=== PATIENT | male | born 1960 | race Caucasian/White ===

== ENCOUNTER 2017-05-29 11:01 | Emergency (ER) | payer BC ==
[~2017-05-29] VITALS: Ht 190.5 cm; Wt 118.0 kg
[~2017-05-29 11:01] MED LIST: CARV-39 PO; CARV12.52 PO; CLIN300C8 PO; LISI-167 PO; TERA5CAP3 PO; TRAN4TAB PO; VERA240C2 PO
[2017-05-29 12:33] LABS: MEAN CORPUSCULAR HEMOGLOBIN 35.8 pg (27.5-34.5); MEAN CORPUSCULAR HGB CONC 34.6 g/dL (33.2-36.2); MEAN CORPUSCULAR VOLUME 103.3 fL (81-97); MEAN PLATELET VOLUME 8.8 fL (7.4-10.4); PLATELET COUNT 202 x10^3/uL (130-400); RED BLOOD COUNT 4.32 x10^6/uL (4.38-5.82); RED CELL DISTRIBUTION WIDTH 12.5 % (9.4-14.8)
[2017-05-29 12:42] LABS: ANION GAP 5 mmol/L (5-15); C-REACTIVE PROTEIN, QUANT 0.67 mg/dL (0.02-0.49); CALCIUM 9.1 mg/dL (8.5-10.1); CHLORIDE 108 mmol/L (98-107); CREATININE 0.88 mg/dL (0.7-1.3)
[2017-05-29 12:54] LABS: MD YES
[2017-05-29 12:57] LABS: BAND#(MANUAL) 0.72 x10^3/uL; BANDS%(MANUAL) 5 % (0-7); LYMPH#(MANUAL) 1.58 x10^3/uL (1-3.4); LYMPHS% (MANUAL) 11 % (22-44); MONOS#(MANUAL) 0.29 x10^3/uL (0.3-2.7); MONOS% (MANUAL) 2 % (2-9); SEG#(MANUAL) 11.81 x10^3/uL (1.8-6.8); SEGS% (MANUAL) 82 % (42-75)
[2017-05-29 12:58] LABS: <PLATELET ESTIMATE> ADEQUATE; <PLT MORPHOLOGY> NORMAL PLT MORPH
[2017-05-29 13:15] VITALS: BP 132/64
== END 2017-05-29 13:17 | disposition home or self-care (01) ==
LOC: ED 13:10
DX: L03.115 Cellulitis of right lower limb (principal); M79.671 Pain in right foot
CPT/HCPCS: 36415; 80048; 85025; 86140; 99285

== ENCOUNTER 2019-10-20 08:48 | Inpatient (IN) | payer BC ==
[~2019-10-20] VITALS: Ht 190.5 cm; Wt 154.1 kg
[~2019-10-20 08:48] MED LIST changes: -TRAN4TAB PO; +TRAN4TAB23 PO
--- NOTE | 2019-10-20 09:33 | NUR ---
pt biba to ed. hx copd non med complianb bc ran out of insurance 2 years ago. c/o sob, incr wob x1 wk, cannot sleep or lay down. 2+ edema bilat lowers pt sts is new for him. sts abdomen feels full. denies cp. a&ox4 gcs 15 anxious on arrival ?withdrawing, drinks 12 +beers per day but last drink [address] onmonitor 110s. bp high as noted. lungs v dim bilat pt morbidly obese. also c/o nonprod cough, nausea, no v/d/cp. piv est labs drawn ekg done awaiting md. call [facility]. as
[2019-10-20 09:36] LABS: MEAN CORPUSCULAR HEMOGLOBIN 34.3 pg (27.5-34.5); MEAN CORPUSCULAR VOLUME 103.9 fL (81-97); NEUTROPHILS % (AUTO) 87 % (42-75); PLATELET COUNT 191 x10^3/uL (130-400); RED BLOOD COUNT 4.25 x10^6/uL (4.38-5.82); RED CELL DISTRIBUTION WIDTH 13.6 % (9.4-14.8)
[2019-10-20 09:37] LABS: BASOPHILS # (AUTO) 0.04 x10^3/uL (0-0.1); BASOPHILS % (AUTO) 0 % (0-1); EOSINOPHILS # (AUTO) 0.06 x10^3/uL (0-0.4); EOSINOPHILS % (AUTO) 1 % (1-7); LYMPHOCYTES # (AUTO) 0.93 x10^3/uL (1-3.4); LYMPHOCYTES % (AUTO) 8 % (22-44); MD NO; MONOCYTES # (AUTO) 0.49 x10^3/uL (0.2-0.8); MONOCYTES % (AUTO) 4 % (2-9); NEUTROPHILS # (AUTO) 9.96 x10^3/uL (1.8-6.8)
[2019-10-20] MEDS ORDERED: CEFTRIAXONE PMX 1GM/50ML 50 ML ONE (09:45)
[2019-10-20 09:53] LABS: ALANINE AMINOTRANSFERASE 44 U/L (12-78); ALBUMIN 3.5 g/dL (3.4-5.0); ANION GAP 8 mmol/L (5-15); CALCIUM 8.4 mg/dL (8.5-10.1); CHLORIDE 104 mmol/L (98-107); CREATININE 0.96 mg/dL (0.7-1.3)
[2019-10-20 09:59] LABS: ALKALINE PHOSPHATASE 101 U/L (45-117); TOTAL PROTEIN 7.1 g/dL (6.4-8.2); TROPONIN I 0.035 ng/mL (0.000-0.045)
[2019-10-20] MEDS ORDERED: CEFTRIAXONE PMX 1GM/50ML 50 ML IV ONE (10:00)
--- NOTE | 2019-10-20 10:04 | NUR ---
abx infusing bp better pt more calm nad. as
--- NOTE | 2019-10-20 10:14 | NUR ---
hold off on covid swab for now per flakito. o2 off to check pt baseilne. as
--- NOTE | 2019-10-20 10:52 | NUR ---
pt walked around room 3 times ,became v sob, incr wob, RA sat 90. tbadm per flakito fraga in room to update pt, pt agrees. nad. as
[2019-10-20 10:59] LABS: D-DIMER (DIC) 1.1 ug/mlFEU (0.00-0.52); PROTIME 10.8 Seconds (9.6-11.5)
[2019-10-20] MEDS ORDERED: SODIUM CHLORIDE 0.9% 1,000ML IVBOLUS ONE (11:00)
--- NOTE | 2019-10-20 11:32 | NUR ---
ua walked to lab. awaiting admit bed. no needs at this time. on RA. as
[2019-10-20 11:50] LABS: MICROSCOPIC INDICATED
--- NOTE | 2019-10-20 12:05 | NUR ---
admitting hosp at bedside for eval. as
[2019-10-20] MEDS: AMPICILLIN/SULBACTAM 3 GM in SODIUM CHLORIDE 0.9% 100 ML IV SCH ×2 (12:30→21:20)
[2019-10-20] MEDS ORDERED: METOCLOPRAMIDE 5 MG/ML, 2ML IVPush PRN (13:00)
[2019-10-20] MEDS ORDERED: LORazepam 2 MG/ML, 1ML IV PRN ×4 (13:00)
[2019-10-20] MEDS: SENNA/DOCUSATE TABLET PO SCH (13:00)
[2019-10-20] MEDS ORDERED: LORazepam 1MG TABLET PO PRN ×4 (13:00)
[2019-10-20] MEDS: INSULIN LISPRO 100 UNITS/ML, PEN SQ-INSULIN SCH ×3 (13:00→21:16)
[2019-10-20] MEDS ORDERED: ACETAMINOPHEN 325 MG TABLET PO PRN (13:00)
[2019-10-20] MEDS ORDERED: LORazepam 0.5MG TABLET PO PRN (13:00)
[2019-10-20] MEDS ORDERED: BACLOFEN 10 MG TABLET PO PRN (13:00)
[2019-10-20] MEDS ORDERED: POLYETHYLENE GLYCOL 17 GM PACKET PO PRN (13:00)
--- NOTE | 2019-10-20 13:11 | NUR ---
given diet tray. declined food. commode placed in room. vss. awaiting bed. as
--- NOTE | 2019-10-20 13:24 | NUR ---
called pharm for lovenox order. req floor meds from pharm. rinaldi per may. pt oob to bathroom. as
--- NOTE | 2019-10-20 13:30 | NUR ---
report to jeffrey arce. as
[2019-10-20 14:39] VITALS: BP 137/100
[2019-10-20] MEDS: ENOXAPARIN 40 MG/0.4 ML SQ SCH (14:41)
[2019-10-20] MEDS: THIAMINE 100MG TABLET PO SCH (14:42)
[2019-10-20] MEDS: ENOXAPARIN 100 MG/ML SQ SCH (14:42)
[2019-10-20] MEDS: ZINC SULFATE 220 MG CAPSULE PO SCH (14:42)
[2019-10-20] MEDS: FOLIC ACID 1 MG TABLET PO SCH (14:42)
[2019-10-20] MEDS: MULTIVITAMINS/MINERALS TABLET PO SCH (14:42)
[2019-10-20] MEDS: CHOLECALCIFEROL 5,000u TAB PO SCH (14:42)
[2019-10-20] MEDS: NICOTINE 21 MG/24 HR PATCH.TD24 TD SCH (14:43)
[2019-10-20] MEDS: VERAPAMIL ER 240MG TABLET.ER PO SCH (15:37)
[2019-10-20] MEDS: ASCORBATE SODIUM 3,000 MG in SODIUM CHLORIDE 0.9% 250 ML IVPB SCH ×2 (17:01→22:48)
[2019-10-20] MEDS: FUROSEMIDE 20 MG/2 ML IV SCH (18:06)
[2019-10-20] MEDS: DEXAMETHASONE 4 MG TABLET PO SCH (18:06)
[2019-10-20] MEDS: POTASSIUM CHLORIDE 20 MEQ TAB.ER.PRT PO SCH (18:06)
[2019-10-20 18:57] VITALS: BP 124/85
[2019-10-20 22:17] VITALS: BP 139/92
[2019-10-20] MEDS: DOXYCYCLINE 100MG CAP PO SCH (22:45)
[2019-10-20] MEDS: CARVEDILOL 25 MG TABLET PO SCH (22:45)
[2019-10-20] MEDS: ALBUTEROL HFA 90 MCG/SPRAY INH PRN (22:45)
[2019-10-20] MEDS: TERAZOSIN 5MG CAPSULE PO SCH (22:47)
[2019-10-20] MEDS: LISINOPRIL 40 MG TABLET PO SCH (22:47)
[2019-10-20] MEDS: MELATONIN 5 MG TABLET PO SCH (22:50)
[2019-10-21 00:11] VITALS: BP 116/80
[2019-10-21] MEDS: ENOXAPARIN 100 MG/ML SQ SCH ×2 (02:47→13:13)
[2019-10-21] MEDS: LORazepam 2 MG/ML, 1ML IV PRN ×2 (02:48→12:40)
[2019-10-21] MEDS: ENOXAPARIN 40 MG/0.4 ML SQ SCH ×2 (02:48→13:13)
[2019-10-21] MEDS: AMPICILLIN/SULBACTAM 3 GM in SODIUM CHLORIDE 0.9% 100 ML IV SCH ×4 (02:53→22:42)
[2019-10-21 03:20] VITALS: BP 109/79
[2019-10-21] MEDS: ASCORBATE SODIUM 3,000 MG in SODIUM CHLORIDE 0.9% 250 ML IVPB SCH ×3 (05:03→18:13)
[2019-10-21 05:28] LABS: BASOPHILS % (AUTO) 0 % (0-1); EOSINOPHILS % (AUTO) 0 % (1-7); LYMPHOCYTES # (AUTO) 0.59 x10^3/uL (1-3.4); LYMPHOCYTES % (AUTO) 6 % (22-44); MD NO; MEAN CORPUSCULAR HEMOGLOBIN 35.2 pg (27.5-34.5); MEAN CORPUSCULAR HGB CONC 34.1 g/dL (33.2-36.2); MEAN CORPUSCULAR VOLUME 103.4 fL (81-97); MEAN PLATELET VOLUME 9.9 fL (7.4-10.4); MONOCYTES # (AUTO) 0.18 x10^3/uL (0.2-0.8); MONOCYTES % (AUTO) 2 % (2-9); NEUTROPHILS # (AUTO) 9.35 x10^3/uL (1.8-6.8); NEUTROPHILS % (AUTO) 92 % (42-75); PLATELET COUNT 197 x10^3/uL (130-400); RED BLOOD COUNT 4.11 x10^6/uL (4.38-5.82); RED CELL DISTRIBUTION WIDTH 13.8 % (9.4-14.8)
[2019-10-21] MEDS: INSULIN LISPRO 100 UNITS/ML, PEN SQ-INSULIN SCH ×4 (06:42→21:26)
[2019-10-21 06:43] VITALS: BP 134/92
[2019-10-21] MEDS: POTASSIUM CHLORIDE 20 MEQ TAB.ER.PRT PO SCH ×2 (06:46→17:05)
[2019-10-21] MEDS: DEXAMETHASONE 4 MG TABLET PO SCH ×2 (06:46→17:05)
[2019-10-21] MEDS: MULTIVITAMINS/MINERALS TABLET PO SCH (08:25)
[2019-10-21] MEDS: CARVEDILOL 25 MG TABLET PO SCH ×2 (08:25→21:00)
[2019-10-21] MEDS: TIOTROPIUM BROMIDE 18 MCG/INH INH SCH (08:25)
[2019-10-21] MEDS: ZINC SULFATE 220 MG CAPSULE PO SCH (08:25)
[2019-10-21] MEDS: FOLIC ACID 1 MG TABLET PO SCH (08:25)
[2019-10-21] MEDS: FUROSEMIDE 20 MG/2 ML IV SCH ×2 (08:25→17:05)
[2019-10-21] MEDS: CHOLECALCIFEROL 5,000u TAB PO SCH (08:25)
[2019-10-21] MEDS: DOXYCYCLINE 100MG CAP PO SCH (08:25)
[2019-10-21] MEDS: VERAPAMIL ER 240MG TABLET.ER PO SCH (08:25)
[2019-10-21] MEDS: THIAMINE 100MG TABLET PO SCH (08:25)
[2019-10-21] MEDS: LISINOPRIL 40 MG TABLET PO SCH ×2 (08:25→21:00)
[2019-10-21] MEDS: SENNA/DOCUSATE TABLET PO SCH (08:52)
[2019-10-21 12:54] VITALS: BP 110/79
[2019-10-21] MEDS: NICOTINE 21 MG/24 HR PATCH.TD24 TD SCH (13:12)
[2019-10-21] MEDS: ALBUTEROL HFA 90 MCG/SPRAY INH PRN (13:14)
[2019-10-21] MEDS ORDERED: PHENOBARBITAL SODIUM IV ONE ×2 (17:30→19:30)
[2019-10-21] MEDS ORDERED: SODIUM CHLORIDE 0.9% IV ONE ×2 (17:30→19:30)
[2019-10-21] MEDS ORDERED: PHENOBARBITAL ETOH DETOX PER PHARMACY MC PRN (17:30)
[2019-10-21] MEDS ORDERED: ZIPRASIDONE 20 MG INJ IM PRN (17:30)
[2019-10-21] MEDS ORDERED: methylPREDNISolone SOD SUCC 125 MG/2 ML ONE (17:39)
[2019-10-21] MEDS: DEXAMETHASONE 4 MG/ML, 1ML IV SCH (17:50)
[2019-10-21] MEDS ORDERED: ALBUTEROL/IPRATROPIUM 2.5MG/0.5MG, 3 ML NPPB SCH (18:00)
[2019-10-21] MEDS ORDERED: methylPREDNISolone SOD SUCC 40 MG/ML IV ONE (18:00)
[2019-10-21] MEDS: ALBUTEROL-IPRATROPIUM MDI INH INH SCH ×2 (18:12→22:00)
[2019-10-21] MEDS: THIAMINE 100 MG in SODIUM CHLORIDE 0.9% 50 ML IV SCH (18:47)
[2019-10-21] MEDS: TERAZOSIN 5MG CAPSULE PO SCH (21:00)
[2019-10-21] MEDS: MELATONIN 5 MG TABLET PO SCH (21:00)
[2019-10-21] MEDS ORDERED: CHLORDIAZEPOXIDE 25 MG CAPSULE PO SCH (21:00)
[2019-10-21] MEDS ORDERED: BUDESONIDE 0.5 MG/2 ML INHA NPPB SCH (21:00)
[2019-10-21] MEDS ORDERED: THIAMINE 100MG TABLET PO SCH (21:00)
[2019-10-21] MEDS: DOXYCYCLINE 100 MG in DEXTROSE 5% 250 ML IV SCH (21:23)
[2019-10-22] MEDS: ASCORBATE SODIUM 3,000 MG in SODIUM CHLORIDE 0.9% 250 ML IVPB SCH ×2 (00:57→05:34)
[2019-10-22] MEDS ORDERED: PHENOBARBITAL SODIUM 65 MG/ML, 1ML IM SCH (01:00)
[2019-10-22] MEDS: ALBUTEROL-IPRATROPIUM MDI INH INH SCH ×6 (02:00→21:09)
[2019-10-22] MEDS: AMPICILLIN/SULBACTAM 3 GM in SODIUM CHLORIDE 0.9% 100 ML IV SCH ×4 (02:56→21:07)
[2019-10-22] MEDS: ENOXAPARIN 100 MG/ML SQ SCH (02:57)
[2019-10-22] MEDS: ENOXAPARIN 40 MG/0.4 ML SQ SCH (02:57)
[2019-10-22 04:00] VITALS: BP 130/94
[2019-10-22 04:36] LABS: BASOPHILS # (AUTO) 0.01 x10^3/uL (0-0.1); BASOPHILS % (AUTO) 0 % (0-1); EOSINOPHILS # (AUTO) 0.01 x10^3/uL (0-0.4); EOSINOPHILS % (AUTO) 0 % (1-7); LYMPHOCYTES # (AUTO) 0.67 x10^3/uL (1-3.4); LYMPHOCYTES % (AUTO) 5 % (22-44); MD NO; MEAN CORPUSCULAR HEMOGLOBIN 34.6 pg (27.5-34.5); MEAN CORPUSCULAR HGB CONC 33.3 g/dL (33.2-36.2); MEAN CORPUSCULAR VOLUME 103.8 fL (81-97); MEAN PLATELET VOLUME 9.9 fL (7.4-10.4); MONOCYTES # (AUTO) 0.47 x10^3/uL (0.2-0.8); MONOCYTES % (AUTO) 3 % (2-9); NEUTROPHILS # (AUTO) 13.17 x10^3/uL (1.8-6.8); NEUTROPHILS % (AUTO) 92 % (42-75); PLATELET COUNT 183 x10^3/uL (130-400); RED BLOOD COUNT 3.92 x10^6/uL (4.38-5.82); RED CELL DISTRIBUTION WIDTH 13.9 % (9.4-14.8)
[2019-10-22 04:48] LABS: ALANINE AMINOTRANSFERASE 47 U/L (12-78); ALBUMIN 3.1 g/dL (3.4-5.0); ANION GAP 4 mmol/L (5-15); CHLORIDE 111 mmol/L (98-107); CREATININE 0.74 mg/dL (0.7-1.3)
[2019-10-22 04:50] LABS: ALKALINE PHOSPHATASE 75 U/L (45-117); BILIRUBIN,TOTAL 0.5 mg/dL (0.2-1.0); TOTAL PROTEIN 6.7 g/dL (6.4-8.2)
[2019-10-22] MEDS: THIAMINE 100 MG in SODIUM CHLORIDE 0.9% 50 ML IV SCH (05:34)
[2019-10-22] MEDS: DEXAMETHASONE 4 MG/ML, 1ML IV SCH ×2 (05:35→17:08)
[2019-10-22] MEDS: INSULIN LISPRO 100 UNITS/ML, PEN SQ-INSULIN SCH ×4 (06:11→20:51)
[2019-10-22] MEDS: ZINC SULFATE 220 MG CAPSULE PO SCH (08:35)
[2019-10-22] MEDS: VERAPAMIL ER 240MG TABLET.ER PO SCH (08:35)
[2019-10-22] MEDS: CHOLECALCIFEROL 5,000u TAB PO SCH (08:35)
[2019-10-22] MEDS: SENNA/DOCUSATE TABLET PO SCH (08:35)
[2019-10-22] MEDS: FOLIC ACID 1 MG TABLET PO SCH (08:36)
[2019-10-22] MEDS: MULTIVITAMINS/MINERALS TABLET PO SCH (08:36)
[2019-10-22] MEDS: FUROSEMIDE 20 MG/2 ML IV SCH ×2 (08:36→17:08)
[2019-10-22] MEDS: LISINOPRIL 40 MG TABLET PO SCH ×2 (08:36→21:07)
[2019-10-22] MEDS: CARVEDILOL 25 MG TABLET PO SCH ×2 (08:36→21:07)
[2019-10-22] MEDS: TIOTROPIUM BROMIDE 18 MCG/INH INH SCH (08:37)
[2019-10-22] MEDS: DOXYCYCLINE 100 MG in DEXTROSE 5% 250 ML IV SCH ×2 (09:03→22:00)
[2019-10-22] MEDS: METOPROLOL 1 MG/ML, 5ML IVPush PRN (09:03)
[2019-10-22] MEDS: ASCORBIC ACID 500 MG TABLET PO SCH ×3 (09:03→21:07)
[2019-10-22] MEDS: NICOTINE 21 MG/24 HR PATCH.TD24 TD SCH (15:20)
[2019-10-22] MEDS: PHENOBARBITAL 20 MG/5 ML ORAL SOL PO SCH (15:20)
[2019-10-22] MEDS: ENOXAPARIN 150 MG/ML SQ SCH (15:21)
[2019-10-22] MEDS: TERAZOSIN 5MG CAPSULE PO SCH (20:51)
[2019-10-23 02:04] VITALS: BP 104/79
[2019-10-23] MEDS: ALBUTEROL-IPRATROPIUM MDI INH INH SCH ×6 (02:13→23:16)
[2019-10-23] MEDS: PHENOBARBITAL 20 MG/5 ML ORAL SOL PO SCH ×2 (03:16→14:58)
[2019-10-23] MEDS: ENOXAPARIN 150 MG/ML SQ SCH ×2 (03:17→14:58)
[2019-10-23] MEDS: AMPICILLIN/SULBACTAM 3 GM in SODIUM CHLORIDE 0.9% 100 ML IV SCH ×4 (03:17→20:26)
[2019-10-23 04:09] LABS: BASOPHILS # (AUTO) 0.01 x10^3/uL (0-0.1); BASOPHILS % (AUTO) 0 % (0-1); EOSINOPHILS % (AUTO) 0 % (1-7); LYMPHOCYTES # (AUTO) 0.47 x10^3/uL (1-3.4); LYMPHOCYTES % (AUTO) 3 % (22-44); MD NO; MEAN CORPUSCULAR HEMOGLOBIN 34.4 pg (27.5-34.5); MEAN CORPUSCULAR HGB CONC 32.8 g/dL (33.2-36.2); MEAN PLATELET VOLUME 10.5 fL (7.4-10.4); MONOCYTES # (AUTO) 0.63 x10^3/uL (0.2-0.8); MONOCYTES % (AUTO) 4 % (2-9); NEUTROPHILS # (AUTO) 13.41 x10^3/uL (1.8-6.8); NEUTROPHILS % (AUTO) 92 % (42-75); PLATELET COUNT 186 x10^3/uL (130-400); RED BLOOD COUNT 3.91 x10^6/uL (4.38-5.82); RED CELL DISTRIBUTION WIDTH 14.2 % (9.4-14.8)
[2019-10-23 04:24] LABS: ANION GAP 5 mmol/L (5-15); CALCIUM 8.1 mg/dL (8.5-10.1); CHLORIDE 109 mmol/L (98-107)
[2019-10-23 04:25] LABS: CREATININE 0.96 mg/dL (0.7-1.3)
[2019-10-23] MEDS: INSULIN LISPRO 100 UNITS/ML, PEN SQ-INSULIN SCH ×4 (07:00→20:15)
[2019-10-23] MEDS ORDERED: VERAPAMIL ER 120MG TABLET.ER ONE (08:21)
[2019-10-23] MEDS: VERAPAMIL ER 240MG TABLET.ER PO SCH (08:34)
[2019-10-23] MEDS: CARVEDILOL 25 MG TABLET PO SCH ×2 (08:35→20:14)
[2019-10-23] MEDS: ZINC SULFATE 220 MG CAPSULE PO SCH (08:35)
[2019-10-23] MEDS: CHOLECALCIFEROL 5,000u TAB PO SCH (08:36)
[2019-10-23] MEDS: THIAMINE 100MG TABLET PO SCH (08:36)
[2019-10-23] MEDS: LISINOPRIL 40 MG TABLET PO SCH ×2 (08:36→20:14)
[2019-10-23] MEDS: ASCORBIC ACID 500 MG TABLET PO SCH (08:36)
[2019-10-23] MEDS: FOLIC ACID 1 MG TABLET PO SCH (08:36)
[2019-10-23] MEDS: MULTIVITAMINS/MINERALS TABLET PO SCH (08:36)
[2019-10-23] MEDS: DEXAMETHASONE 4 MG/ML, 1ML IV SCH (08:37)
[2019-10-23] MEDS: FUROSEMIDE 20 MG/2 ML IV SCH ×2 (08:37→16:48)
[2019-10-23] MEDS: TIOTROPIUM BROMIDE 18 MCG/INH INH SCH (08:38)
[2019-10-23] MEDS: SENNA/DOCUSATE TABLET PO SCH (08:41)
[2019-10-23] MEDS: DOXYCYCLINE 100 MG in DEXTROSE 5% 250 ML IV SCH ×2 (10:37→22:05)
[2019-10-23] MEDS: NICOTINE 21 MG/24 HR PATCH.TD24 TD SCH (11:50)
[2019-10-23] MEDS: methylPREDNISolone SOD SUCC 125 MG/2 ML IVPush SCH ×3 (11:50→23:16)
[2019-10-23 19:50] VITALS: BP 142/94
[2019-10-23] MEDS: TERAZOSIN 5MG CAPSULE PO SCH (20:14)
[2019-10-24 00:55] VITALS: BP 120/79
[2019-10-24] MEDS ORDERED: PHENOBARBITAL 20 MG/5 ML ORAL SOL PO SCH (01:00)
[2019-10-24] MEDS: AMPICILLIN/SULBACTAM 3 GM in SODIUM CHLORIDE 0.9% 100 ML IV SCH ×4 (03:44→21:21)
[2019-10-24] MEDS: ENOXAPARIN 150 MG/ML SQ SCH ×2 (03:46→15:21)
[2019-10-24] MEDS: methylPREDNISolone SOD SUCC 125 MG/2 ML IVPush SCH (04:53)
[2019-10-24] MEDS: ALBUTEROL-IPRATROPIUM MDI INH INH SCH ×5 (04:53→21:22)
[2019-10-24 05:25] LABS: ALANINE AMINOTRANSFERASE 63 U/L (12-78); ALBUMIN 3.2 g/dL (3.4-5.0); ANION GAP 6 mmol/L (5-15); C-REACTIVE PROTEIN, QUANT 0.54 mg/dL (0.02-0.49); CALCIUM 8.4 mg/dL (8.5-10.1); CHLORIDE 109 mmol/L (98-107); CREATININE 0.95 mg/dL (0.7-1.3)
[2019-10-24 05:28] LABS: ALKALINE PHOSPHATASE 71 U/L (45-117); BILIRUBIN,TOTAL 0.5 mg/dL (0.2-1.0); TOTAL PROTEIN 6.4 g/dL (6.4-8.2)
[2019-10-24 05:30] LABS: BASOPHILS % (AUTO) 0 % (0-1); EOSINOPHILS % (AUTO) 0 % (1-7); LYMPHOCYTES % (AUTO) 5 % (22-44); MD NO; MEAN CORPUSCULAR HGB CONC 32.3 g/dL (33.2-36.2); MEAN CORPUSCULAR VOLUME 105.1 fL (81-97); MEAN PLATELET VOLUME 10.1 fL (7.4-10.4); MONOCYTES # (AUTO) 0.27 x10^3/uL (0.2-0.8); MONOCYTES % (AUTO) 3 % (2-9); NEUTROPHILS # (AUTO) 8.02 x10^3/uL (1.8-6.8); NEUTROPHILS % (AUTO) 92 % (42-75); PLATELET COUNT 162 x10^3/uL (130-400); RED BLOOD COUNT 3.91 x10^6/uL (4.38-5.82); RED CELL DISTRIBUTION WIDTH 13.6 % (9.4-14.8)
[2019-10-24 06:05] LABS: HCT (SEDRATE) 41.1 % (39.2-51.8)
[2019-10-24 08:21] VITALS: BP 156/111
[2019-10-24] MEDS: SENNA/DOCUSATE TABLET PO SCH (09:00)
[2019-10-24] MEDS ORDERED: DOXYCYCLINE 100MG TABLET PO SCH (09:00)
[2019-10-24] MEDS: THIAMINE 100MG TABLET PO SCH (09:41)
[2019-10-24] MEDS: VERAPAMIL 180 MG CAP. ER PO SCH (09:41)
[2019-10-24] MEDS: MULTIVITAMINS/MINERALS TABLET PO SCH (09:42)
[2019-10-24] MEDS: LISINOPRIL 40 MG TABLET PO SCH ×2 (09:42→21:20)
[2019-10-24] MEDS: CARVEDILOL 25 MG TABLET PO SCH ×2 (09:42→21:20)
[2019-10-24] MEDS: INSULIN LISPRO 100 UNITS/ML, PEN SQ-INSULIN SCH ×4 (09:42→21:20)
[2019-10-24] MEDS: FOLIC ACID 1 MG TABLET PO SCH (09:42)
[2019-10-24] MEDS: FUROSEMIDE 20 MG TABLET PO SCH (09:42)
[2019-10-24] MEDS: TIOTROPIUM BROMIDE 18 MCG/INH INH SCH (09:43)
[2019-10-24] MEDS: PHENOBARBITAL 20 MG/5 ML ORAL SOL PO SCH ×2 (09:47→21:19)
[2019-10-24] MEDS: METOPROLOL 1 MG/ML, 5ML IVPush PRN (09:47)
[2019-10-24] MEDS: NICOTINE 21 MG/24 HR PATCH.TD24 TD SCH (12:46)
[2019-10-24 14:01] VITALS: BP 143/101
[2019-10-24 20:03] VITALS: BP 131/94
[2019-10-24] MEDS ORDERED: MELATONIN 3 MG TABLET PO SCH (21:00)
[2019-10-24] MEDS: TERAZOSIN 5MG CAPSULE PO SCH (21:24)
[2019-10-25 00:27] VITALS: BP 128/96
[2019-10-25] MEDS: ALBUTEROL-IPRATROPIUM MDI INH INH SCH ×3 (01:43→10:47)
[2019-10-25] MEDS: AMPICILLIN/SULBACTAM 3 GM in SODIUM CHLORIDE 0.9% 100 ML IV SCH (03:15)
[2019-10-25] MEDS: ENOXAPARIN 150 MG/ML SQ SCH (03:15)
[2019-10-25 05:59] LABS: BASOPHILS # (AUTO) 0.02 x10^3/uL (0-0.1); BASOPHILS % (AUTO) 0 % (0-1); EOSINOPHILS % (AUTO) 0 % (1-7); LYMPHOCYTES # (AUTO) 1.09 x10^3/uL (1-3.4); LYMPHOCYTES % (AUTO) 11 % (22-44); MD NO; MEAN CORPUSCULAR HEMOGLOBIN 34.5 pg (27.5-34.5); MEAN CORPUSCULAR VOLUME 104.3 fL (81-97); MEAN PLATELET VOLUME 11.3 fL (7.4-10.4); MONOCYTES # (AUTO) 0.83 x10^3/uL (0.2-0.8); MONOCYTES % (AUTO) 8 % (2-9); NEUTROPHILS # (AUTO) 8.26 x10^3/uL (1.8-6.8); NEUTROPHILS % (AUTO) 81 % (42-75); PLATELET COUNT 158 x10^3/uL (130-400); RED BLOOD COUNT 4.17 x10^6/uL (4.38-5.82)
[2019-10-25 06:02] LABS: ALANINE AMINOTRANSFERASE 60 U/L (12-78); ALBUMIN 3.2 g/dL (3.4-5.0); ANION GAP 4 mmol/L (5-15); CALCIUM 8.5 mg/dL (8.5-10.1); CHLORIDE 111 mmol/L (98-107); CREATININE 0.93 mg/dL (0.7-1.3)
[2019-10-25 06:05] LABS: ALKALINE PHOSPHATASE 67 U/L (45-117); BILIRUBIN,TOTAL 0.5 mg/dL (0.2-1.0); TOTAL PROTEIN 6.3 g/dL (6.4-8.2)
[2019-10-25] MEDS: INSULIN LISPRO 100 UNITS/ML, PEN SQ-INSULIN SCH ×2 (07:00→10:47)
[2019-10-25] MEDS ORDERED: ALBUTEROL HFA 90 MCG/SPRAY INH PRN (07:30)
[2019-10-25] MEDS ORDERED: MULT-484 PO (08:08)
[2019-10-25] MEDS ORDERED: FURO20TA3 PO (08:08)
[2019-10-25] MEDS ORDERED: PRED20TA PO (08:08)
[2019-10-25] MEDS ORDERED: THIA100T67 PO (08:08)
[2019-10-25] MEDS ORDERED: CARV-39 PO (08:08)
[2019-10-25] MEDS ORDERED: LISI40TA PO (08:08)
[2019-10-25] MEDS ORDERED: ALBU18HF INH (08:08)
[2019-10-25] MEDS ORDERED: FOLI-17 PO (08:08)
[2019-10-25] MEDS ORDERED: VERA180C4 PO (08:08)
[2019-10-25] MEDS ORDERED: APIX5TAB PO (08:08)
[2019-10-25 08:20] VITALS: BP 150/121
[2019-10-25] MEDS: TIOTROPIUM BROMIDE 18 MCG/INH INH SCH (08:37)
[2019-10-25] MEDS: VERAPAMIL 180 MG CAP. ER PO SCH (08:38)
[2019-10-25] MEDS: CARVEDILOL 25 MG TABLET PO SCH (08:38)
[2019-10-25] MEDS: LISINOPRIL 40 MG TABLET PO SCH (08:39)
[2019-10-25] MEDS: MULTIVITAMINS/MINERALS TABLET PO SCH (08:39)
[2019-10-25] MEDS: FUROSEMIDE 20 MG TABLET PO SCH (08:39)
[2019-10-25] MEDS: FOLIC ACID 1 MG TABLET PO SCH (08:39)
[2019-10-25] MEDS: SENNA/DOCUSATE TABLET PO SCH (08:39)
[2019-10-25] MEDS: THIAMINE 100MG TABLET PO SCH (08:39)
[2019-10-25 08:48] VITALS: BP 137/88
[2019-10-25 14:01] VITALS: BP 151/93
[2019-10-26] MEDS ORDERED: PHENOBARBITAL 20 MG/5 ML ORAL SOL PO SCH (01:00)
[2019-10-27] MEDS ORDERED: PHENOBARBITAL 20 MG/5 ML ORAL SOL PO SCH (01:00)
== END 2019-10-25 14:18 | disposition home or self-care (01) | DRG 871 ==
LOC: ED 10:38 → EDIP 10:57 → 4EST 14:02 → ICU 10-21 17:24 → 4WST 10-22 18:20
PROVIDERS: ADMIT Internal Medicine; ATTEND Family Medicine
DX: A41.89 Other specified sepsis (principal); J12.89 Other viral pneumonia; J96.01 Acute respiratory failure with hypoxia; I50.33 Acute on chronic diastolic (congestive) heart failure; E66.2 Morbid (severe) obesity with alveolar hypoventilation; E87.1 Hypo-osmolality and hyponatremia; E87.2 Acidosis; F10.239 Alcohol dependence with withdrawal, unspecified; L03.116 Cellulitis of left lower limb; Z68.41 Body mass index [BMI] 40.0-44.9, adult; E11.65 Type 2 diabetes mellitus with hyperglycemia; F17.200 Nicotine dependence, unspecified, uncomplicated; F91.9 Conduct disorder, unspecified; I11.0 Hypertensive heart disease with heart failure; I48.91 Unspecified atrial fibrillation; J43.9 Emphysema, unspecified; L84 Corns and callosities; Z20.828 Contact with and (suspected) exposure to other viral communicable diseases; N40.0 Benign prostatic hyperplasia without lower urinary tract symptoms; Z91.19 Patient's noncompliance with other medical treatment and regimen; Z88.8 Allergy status to other drugs, medicaments and biological substances; Y90.9 Presence of alcohol in blood, level not specified
CPT/HCPCS: 36415; 36600; 71045; 80048; 80053; 81001; 82728; 82803; 82962; 83036; 83605; 83615; 83735; 83880; 84100; 84145; 84443; 84484; 85025; 85049; 85379; 85384; 85610; 85651; 85730; 86140; 87040; 87081; 87635; 93005; 93306; 93970; 96374; G0378; J0295; J0696; J1100; J1650; J2560; J3411; J3486; J7060; J1815; J1940; J2060; J2765; J2920; J2930; J7030; J7050; J7512

== ENCOUNTER 2019-12-12 11:06 | Day surgery (SDC) | payer MEDICARE, BC ==
[~2019-12-12] VITALS: Ht 190.5 cm; Wt 145.5 kg
[~2019-12-12 11:06] MED LIST changes: +ALBU18HF INH; +APIX5TAB PO; +FOLI-17 PO; +FURO20TA3 PO; +LISI40TA PO; +MULT-484 PO; +PRED20TA PO; +THIA100T67 PO; +VERA180C4 PO
[2019-12-12 11:38] VITALS: BP 123/89
[2019-12-12] MEDS ORDERED: TIOT4MIS5 INH (11:52)
[2019-12-12] MEDS ORDERED: ACAM333T7 PO (11:52)
[2019-12-12] MEDS ORDERED: DABI150C PO (11:52)
[2019-12-12 12:42] LABS: BASOPHILS # (AUTO) 0.02 x10^3/uL (0-0.1); BASOPHILS % (AUTO) 0 % (0-1); EOSINOPHILS # (AUTO) 0.07 x10^3/uL (0-0.4); EOSINOPHILS % (AUTO) 1 % (1-7); LYMPHOCYTES # (AUTO) 1.94 x10^3/uL (1-3.4); LYMPHOCYTES % (AUTO) 20 % (22-44); MD NO; MEAN CORPUSCULAR HEMOGLOBIN 34.6 pg (27.5-34.5); MEAN PLATELET VOLUME 9.7 fL (7.4-10.4); MONOCYTES % (AUTO) 7 % (2-9); NEUTROPHILS # (AUTO) 6.75 x10^3/uL (1.8-6.8); NEUTROPHILS % (AUTO) 71 % (42-75); PLATELET COUNT 229 x10^3/uL (130-400); RED BLOOD COUNT 4.86 x10^6/uL (4.38-5.82); RED CELL DISTRIBUTION WIDTH 13.3 % (9.4-14.8)
[2019-12-12 12:49] LABS: ANION GAP 6 mmol/L (5-15); CHLORIDE 110 mmol/L (98-107); CREATININE 0.96 mg/dL (0.7-1.3)
[2019-12-12] MEDS ORDERED: PROPOFOL 10 MG/ML, 20ML ONE (12:58)
== END 2019-12-12 14:18 | disposition home or self-care (01) ==
LOC: CACL 11:06
PROVIDERS: ATTEND Internal Medicine Clinical Cardiac Electrophysiology
DX: I48.19 Other persistent atrial fibrillation (principal); I10 Essential (primary) hypertension; J44.9 Chronic obstructive pulmonary disease, unspecified; E11.621 Type 2 diabetes mellitus with foot ulcer; F10.29 Alcohol dependence with unspecified alcohol-induced disorder; E66.01 Morbid (severe) obesity due to excess calories; F17.210 Nicotine dependence, cigarettes, uncomplicated; Z88.8 Allergy status to other drugs, medicaments and biological substances; Z79.01 Long term (current) use of anticoagulants; Z68.41 Body mass index [BMI] 40.0-44.9, adult; Z79.899 Other long term (current) drug therapy; Z98.890 Other specified postprocedural states; Z87.01 Personal history of pneumonia (recurrent)
CPT/HCPCS: 36415; 80048; 85025; 92960; J2704